=== PATIENT | female | born 1990 | race Caucasian/White ===

== ENCOUNTER 2017-11-27 12:33 | Emergency (ER) | payer BC, MEDICAID ==
[2017-11-27 12:49] VITALS: BP 130/82
--- NOTE | 2017-11-27 13:34 | EDM.PDOC ---
Scribed by Tamika Story 11/27/17 [id number] for Celestine Anne MD ED HPI GENERAL MEDICAL PROBLEM - General Chief Complaint: ENT Problem Stated Complaint: EAR VERY PAINFUL, [id number] Time Seen by Provider: 11/27/17 12:59 Source of Information: Reports: Patient, RN, RN Notes Reviewed History Limitations: Reports: No Limitations - History of Present Illness INITIAL COMMENTS - FREE TEXT/NARRATIVE: Patient presents with complaint of onset of left ear pain yesterday and worse today. Denies drainage, fever, chills or any other symptoms. Onset Date: 11/26/17 Duration: Getting Worse Location: Reports: Other (left ear') Quality: Reports: Ache Severity: Severe Improves with: Reports: None Worsens with: Reports: None Associated Symptoms: Reports: No Other Symptoms Left Ear Pain Score (Numeric/FACES): 8 - Related Data Allergies Allergy/AdvReac Type Severity Reaction Status Date / Time latex Allergy Rash Verified 11/27/17 13:13 Home Meds: Home Meds . 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 (See Below) Other OB/BYN History: iud placement and removal,bv Musculoskeletal History: Reports: None Neurological History: Reports: None Psychiatric History: Reports: Depression Endocrine/Metabolic History: Reports: Diabetes, Gestational Hematologic History: Reports: None Immunologic History: Reports: None Oncologic (Cancer) History: Reports: None Dermatologic History: Reports: None - Infectious Disease History Infectious Disease History: Reports: Chicken Pox, Shingles - Past Surgical History HEENT Surgical History: Reports: Myringotomy w Tube(s), Other (See Below) Social & Family History - Family History Family Medical History: Noncontributory - Tobacco Use Smoking Status *Q: Former Smoker Used Tobacco, but Quit: Yes Month Tobacco Last Used: 2011 Second Hand Smoke Exposure: No - Caffeine Use Caffeine Use: Reports: None - Recreational Drug Use Recreational Drug Use: No ED ROS ENT - Review of Systems Review Of Systems: ROS reveals no pertinent complaints other than HPI. ED EXAM, ENT - Physical Exam Exam: See Below Exam Limited By: No Limitations General Appearance: Alert, WD/WN, No Apparent Distress, Obese Eye Exam: Bilateral Eye: Normal Inspection Ears: Normal External Exam, Hearing Grossly Normal, Other (left TM bulging, erythematous and dull. No perforation. No drainage. Right TM canal normal.) Nose: Normal Inspection, Normal Mucousa, No Blood Mouth/Throat: Normal Inspection, Normal Gums, Normal Lips, Normal Oropharynx, Normal Teeth Head: Atraumatic, Normocephalic Neck: Normal Inspection, Supple, Non-Tender, Full Range of Motion Respiratory/Chest: No Respiratory Distress, Lungs Clear, Normal Breath Sounds, No Accessory Muscle Use, Chest Non-Tender Cardiovascular: Normal Peripheral Pulses, Regular Rate, Rhythm, No Edema, No Gallop, No JVD, No Murmur, No Rub Neurological: Alert, Oriented, CN II-XII Intact, Normal Cognition, Normal Gait, No Motor/Sensory Deficits Psychiatric: Normal Affect, Normal Mood Skin: Warm, Dry, Intact, Normal Color, No Rash Course - Vital Signs Last Recorded V/S: Last Vital Signs Temp 37.2 C 11/27/17 12:48 Pulse 88 11/27/17 12:48 Resp 20 11/27/17 12:48 BP 130/82 11/27/17 12:48 Pulse Ox 97 11/27/17 12:48 Departure - Departure Time of Disposition: 13:28 Disposition: Home, Self-Care 01 Condition: Good Clinical Impression: Otitis media Qualifiers: Otitis media type: suppurative Chronicity: acute Laterality: left Recurrence: not specified as recurrent Spontaneous tympanic membrane rupture: without spontaneous rupture Qualified Code(s): H66.002 - Acute suppurative otitis media without spontaneous rupture of ear drum, left ear - Discharge Information Instructions: Otitis Media, Adult, [id number] Forms: ED Department Discharge Additional Instructions: RX: Augmentin 875mg. Follow up in clinic in 7 to 10 days for ear recheck if not completely improved. I have read and agree with the documentation that has been completed regarding this visit. By signing this record, I attest that the documentation was completed in my physical presence and is an accurate record of the encounter.
== END 2017-11-27 13:34 | disposition home or self-care (01) ==
LOC: DL.ED 12:33
DX: H66.002 Acute suppurative otitis media without spontaneous rupture of ear drum, left ear (principal); Z91.040 Latex allergy status; Z87.891 Personal history of nicotine dependence
CPT/HCPCS: 99283

== ENCOUNTER 2019-08-13 16:03 | Emergency (ER) | payer BC ==
[2019-08-13] MEDS ORDERED: Ciprofloxacin 0.3% Ophth Soln 5 ML Bottle ONE (16:24)
[2019-08-13 16:25] VITALS: BP 123/64; PULSE 90
[2019-08-13] MEDS ORDERED: Amoxicillin/Clavulanate K 875-125 MG Tab PO ONE (16:26)
[2019-08-13] MEDS ORDERED: Acetaminophen/HYDROcodone 325-10 MG Tab PO ONE (16:28)
--- NOTE | 2019-08-13 16:32 | EDM.PDOC ---
Scribed by Tamika Story 08/13/19 8515 for Celestine Anne MD ED HPI GENERAL MEDICAL PROBLEM - General Chief Complaint: ENT Problem Stated Complaint: EAR INFECTION Time Seen by Provider: 08/13/19 16:15 Source of Information: Reports: Patient, RN, RN Notes Reviewed History Limitations: Reports: No Limitations - History of Present Illness INITIAL COMMENTS - FREE TEXT/NARRATIVE: Patient presents to ER with left ear pain. She has had one day duration of severe left ear pain with a small amount of drainage. Reports history of chronic /recurrent left sided ear infection since childhood. When she was a child she put a Q-tip in her left ear and ruptured membrane which required surgical repair. She has not taken any medications for pain because sh eis 14 weeks . Patient states that her current visit is not related to her current . Onset Date: 08/12/19 Duration: Getting Worse Location: Reports: Other (left ear) Quality: Reports: Ache Severity: Severe Improves with: Reports: None Worsens with: Reports: None Associated Symptoms: Reports: No Other Symptoms - Related Data Allergies Allergy/AdvReac Type Severity Reaction Status Date / Time latex Allergy Rash Verified 08/13/19 16:20 Home Meds: Home Meds . 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 STONE AND PLATE PREPARER APPRENTICE History: iud placement and removal,bv Musculoskeletal History: Reports: None Neurological History: Reports: None Psychiatric History: Reports: Depression Endocrine/Metabolic History: Reports: Diabetes, Gestational Hematologic History: Reports: None Immunologic History: Reports: None Oncologic (Cancer) History: Reports: None Dermatologic History: Reports: None - Infectious Disease History Infectious Disease History: Reports: Chicken Pox, Shingles - Past Surgical History HEENT Surgical History: Reports: Myringotomy w Tube(s), Other (See Below) Social & Family History - Family History Family Medical History: Noncontributory - Caffeine Use Caffeine Use: Reports: None - Living Situation & Occupation Living situation: Reports: with Family ED ROS ENT - Review of Systems Review Of Systems: ROS reveals no pertinent complaints other than HPI. ED EXAM, ENT - Physical Exam Exam: See Below Exam Limited By: No Limitations General Appearance: Alert, WD/WN, No Apparent Distress Eye Exam: Bilateral Eye: Normal Inspection Ears: Normal External Exam, Canal Discharge (Left, yellowish drainage), Canal Swelling, Other (Rt TM nl to exam. Left TM partially visualized, and is erythematous.). No: Auricular Erythema, Auricular Tenderness, Mastoid Swelling , Mastoid Tenderness, Canal Blood Nose: Normal Inspection Mouth/Throat: Normal Inspection Head: Atraumatic, Normocephalic Neck: Normal Inspection, Supple, Non-Tender, Full Range of Motion. No: Lymphadenopathy (L), Lymphadenopathy (R) Respiratory/Chest: No Respiratory Distress Neurological: Alert, Oriented, Normal Gait, No Motor/Sensory Deficits Psychiatric: Normal Affect, Normal Mood Skin: Warm, Dry, Intact, Normal Color, No Rash Course - Vital Signs Last Recorded V/S: Last Vital Signs Temp 97.7 F 08/13/19 16:21 Pulse 90 08/13/19 16:21 Resp 16 08/13/19 16:21 BP 123/64 08/13/19 16:21 Pulse Ox 99 08/13/19 16:21 - Orders/Labs/Meds Orders: Active Orders 24 hr Category Date Time Status Acetaminophen/HYDROcodone [Delevan 325-10 MG] Med 08/13/19 16:28 Once 1 tab PO ONETIME ONE Meds: Medications Discontinued Medications Generic Name Dose Route Start Last Admin Trade Name Freq PRN Reason Stop Dose Admin Amoxicillin/Clavulanate Potassium 1 tab 08/13/19 16:26 Augmentin 875 Mg/125 Mg PO 08/13/19 16:27 ONETIME ONE Ciprofloxacin 1 ml 08/13/19 16:24 Ciprofloxacin 0.3% Ophth Soln .XX 08/13/19 16:25 ONETIME ONE Departure - Departure Time of Disposition: 16:29 Disposition: Home, Self-Care 01 Condition: Good Clinical Impression: Otitis externa Qualifiers: Otitis externa type: other infective Chronicity: acute Laterality: left Qualified Code(s): H60.392 - Other infective otitis externa, left ear Otitis media Qualifiers: Otitis media type: suppurative Chronicity: acute Laterality: left Recurrence: not specified as recurrent Spontaneous tympanic membrane rupture: without spontaneous rupture Qualified Code(s): H66.002 - Acute suppurative otitis media without spontaneous rupture of ear drum, left ear - Discharge Information *PRESCRIPTION DRUG MONITORING PROGRAM REVIEWED*: No *COPY OF PRESCRIPTION DRUG MONITORING REPORT IN PATIENT ALICIA: No Instructions: Otitis Media, Adult, Cayc-[id number], Otitis Externa, [id number] Forms: ED Department Discharge Additional Instructions: Rx: Augmentin 875mg Ciprofloxacin Ophth. Solution 0.3% Place 4 to 5 drops in left ear canal 4 times a day for five days. Follow up in clinic for recheck if not improving as expected. - My Orders Last 24 Hours: My Active Orders 08/13/19 16:28 Acetaminophen/HYDROcodone [Delevan 325-10 MG] 1 tab PO ONETIME ONE - Assessment/Plan Last 24 Hours: My Active Orders 08/13/19 16:28 Acetaminophen/HYDROcodone [Delevan 325-10 MG] 1 tab PO ONETIME ONE I have read and agree with the documentation that has been completed regarding this visit. By signing this record, I attest that the documentation was completed in my physical presence and is an accurate record of the encounter.
== END 2019-08-13 16:49 | disposition home or self-care (01) ==
LOC: DL.ED 16:03
DX: O99.89 Other specified diseases and conditions complicating pregnancy, childbirth and the puerperium (principal); H60.392 Other infective otitis externa, left ear; O24.419 Gestational diabetes mellitus in pregnancy, unspecified control; Z91.040 Latex allergy status; Z3A.14 14 weeks gestation of pregnancy
CPT/HCPCS: 99282; A9270

== ENCOUNTER 2020-01-30 07:57 | Inpatient (IN) | payer BC, SELFPAY ==
[~2020-01-30 07:57] MED LIST: Acetaminophen 325 MG Tab PO PRN; Carboprost Tromethamine 250 MCG/1 ML Amp IM PRN; Lactated Ringers 1,000 ML IV ONE; Lidocaine 1% 30 ML SDV INJECT PRN; Methylergonovine 0.2 MG/1 ML Amp IM PRN; Misoprostol 400 MCG (4 X 100 MCG TAB) RECTAL PRN; Ondansetron 4 MG/2 ML SDV IVPUSH PRN; Oxytocin/Normal Saline 30 UNIT/500 ML BAG IV SCH; Sodium Chloride 0.9% 10 ML Syringe FLUSH PRN; Tranexamic Acid 1,000 MG in Sodium Chloride 0.9% 100 ML IV PRN
--- NOTE | 2020-01-30 09:39 | OBOUT ---
DATE: 01/30/2020 TIME: 8:15 to 8:23. REASON FOR NST: 1. Intrauterine at 39 weeks, confirmed with 8 and 6/7 weeks ultrasound. 2. Gestational diabetes mellitus, controlled on insulin. 3. GBS negative. 4. Rh negative. Received RhoGAM appropriately. 5. History of subchorionic hemorrhage in the 1st trimester - resolved. 6. G5, P4-0-0-4. NST INTERPRETATION: During this time period, heart tone baseline is approximately 125, and there are at least two 15 x 15 beats per minute accelerations making this strip reactive. It is also noted to be reassuring. Tocometer reveals irritability. No obvious contractions, none felt by the patient. Blood pressure 138/81 prior. ASSESSMENT: 1. Nonstress test, reactive and reassuring. 2. Tocometer without contractions. PLAN: Evaluation did reveal her to be 4 to 5 cm, 70% effaced, -1 station, vertex suspected, and artificial rupture of membranes done after discussion with the patient yielding copious amounts of clear fluid. Please see admit history and physical done through [facility] and updated today with review of systems fully reviewed and felt to be noncontributory other than as noted. Records were called for, reviewed, and supplemented by the patient's history in regard to this as well. [facility] /[id number]
[2020-01-30] MEDS: Oxytocin/Normal Saline 30 UNIT/500 ML BAG IV SCH ×2 (11:37→16:48)
[2020-01-30] MEDS: Lactated Ringers 1,000 ML IV SCH ×2 (11:37→18:10)
[2020-01-30] MEDS ORDERED: Sodium Chloride 0.9% 10 ML Syringe FLUSH PRN (15:14)
[2020-01-30] MEDS ORDERED: Simethicone 80 MG Tab.Chew PO PRN (15:14)
[2020-01-30] MEDS ORDERED: Docusate Sodium 100 MG Cap PO PRN (15:14)
[2020-01-30] MEDS ORDERED: Benzocaine/Menthol 20%-0.5% Spray 56 GM Canister TOP PRN (15:14)
[2020-01-30] MEDS ORDERED: Zolpidem 5 MG Tab PO PRN (15:14)
[2020-01-30] MEDS ORDERED: Oxytocin 10 Units/1 ML SDV IM PRN (15:14)
[2020-01-30] MEDS ORDERED: Ibuprofen 800 MG Tab PO PRN (15:14)
[2020-01-30] MEDS: Ferrous Sulfate 325 MG Tab PO SCH (18:34)
[2020-01-30] MEDS ORDERED: fentaNYL 100 MCG/2 ML SDV IVPUSH STA (19:04)
[2020-01-30 21:07] VITALS: PULSE 61
[2020-01-31 08:36] VITALS: BP 112/67
[2020-01-31] MEDS: Ferrous Sulfate 325 MG Tab PO SCH (08:41)
[2020-01-31] MEDS ORDERED: Prenatal Multivitamin with Calcium/Folic Acid/Iron Tab PO SCH (09:00)
--- NOTE | 2020-01-31 10:11 | DEL ---
DATE: 01/30/2020 PREOPERATIVE DIAGNOSES: 1. Intrauterine at 39 weeks, confirmed with 8 and 6/7 weeks ultrasound. 2. Gestational diabetes mellitus, controlled on insulin. 3. Group B Streptococcus negative. 4. Rh negative. Received RhoGAM appropriately earlier in the . 5. History of subchorionic hemorrhage in the 1st trimester - resolved. 6. Gestational thrombocytopenia, platelets of 130,000 upon admit. 7. G5, P4-0-0-4. POSTOPERATIVE DIAGNOSES: 1. Intrauterine at 39 weeks, confirmed with 8 and 6/7 weeks ultrasound - delivered. 2. Gestational diabetes mellitus, controlled on insulin. 3. Group B Streptococcus negative. 4. Rh negative. Received RhoGAM appropriately earlier in the . 5. History of subchorionic hemorrhage in the 1st trimester - resolved. 6. Gestational thrombocytopenia, platelets of 130,000 upon admit. 7. G5, P4-0-0-4. PROCEDURE PERFORMED: NST, artificial rupture of membranes, Pitocin augmentation and spontaneous vaginal delivery on 01/30/[address] Servin. ANESTHESIA/ANALGESIA: The patient did receive Nitrox in the late 1st stage and 2nd stage of labor. ESTIMATED BLOOD LOSS: 200 mL. FINDINGS: Female, score and weight pending. SUMMARY OF EVENTS: The patient is a 29-year-old, G5, P4-0-0-4, intrauterine at 39 weeks, confirmed with 8 and 6/7 weeks ultrasound who was admitted for induction of labor with gestational diabetes mellitus, controlled on insulin at 39+ weeks. She had a ripening cervix being 4+ cm upon admission. Underwent NST, followed by artificial rupture of membranes and as active labor did not pursue thereafter with contraction, Pitocin augmentation was started. She maxed out at 4 milliunits per minute. Subsequently, she progressed into labor after Pitocin was given and rapidly dilated from 7 cm to complete in less than a half hour. I was called to the room, donned sterile gown and gloves when the patient pushing with contractions, when she was found to be complete, vertex was delivered in a JOAN presentation followed by anterior and posterior shoulder as well as rest of the infant without difficulty. Mouth and nares were suctioned. Cord was doubly clamped and cut. Infant was resuscitated on mother's abdomen. Approximately 10 mL of cord blood was obtained for labs. Placenta was then delivered with gentle cord traction and fundal massage within 5 to 10 minutes. Perineum, vagina, and perirectal areas were then examined without any tears or lacerations. Mother and infant are currently stable at the time of dictation. [facility] /[id number]
--- NOTE | 2020-01-31 10:17 | PN ---
DATE: 01/30/2020 SUBJECTIVE: The patient notes some increasing cramping with bleeding. OBJECTIVE: Nurses note increased bleeding with some clots. EBL of about 1000 mL at current time from delivery. She did eat at approximately 1700 hours. Pad was just changed and minimal flow was noted. Interventions include Methergine 0.2 mg IM x1 as well as TXA 1 g IV given initially and firm uterus is noted around -1 below the umbilicus. Vital signs have been stable, and the patient is currently asymptomatic. She denies any chest pain, shortness of breath, or lightheadedness. Glucose was 160, but that was within 1 hour of her eating. ASSESSMENT AND PLAN: 1. hemorrhage, possibly related to atony with improvement with medications at this point in time. I did discuss with the patient there may be a potential for doing a bimanual exam with finger uterine curettage to further evaluate if bleeding increases. At current time of dictation, pad was changed approximately 20 minutes ago and bleeding has significantly decreased. Therefore, we will continue to follow clinically and closely. In addition, we will make her n.p.o. at this point in time. Re-evaluate serially. If bleeding increases significantly, symptoms develop, vital signs are not stable, or continues, will need to be re-evaluated and consider bimanual exam with finger uterine curettage. NON DESTRUCTIVE TESTING SCIENTIST was called in regard to this, and with recent oral intake, we will continue to follow clinically and closely at this point in time as bleeding has slowed down. Plans were discussed with nurse, they understand and agree as well, and will call with any concerns. 2. day #0 status post spontaneous vaginal delivery. 3. Gestational thrombocytopenia, platelets 130,000. We will draw a CBC now and then type and screen in potential for anticipation if there are concerns. We will start those labs now and follow clinically and closely thereafter. [facility] /[id number]
--- NOTE | 2020-02-01 08:19 | DISCH ---
ADMITTING DIAGNOSES: 1. Intrauterine at 39 weeks, confirmed with 8 and 6/7 weeks ultrasound. 2. Gestational diabetes mellitus, controlled on insulin. 3. GBS negative. 4. Rh negative. Received RhoGAM appropriately and received RhoGAM as baby was blood type O positive. 5. History of subchorionic hemorrhage in the 1st trimester - resolved. 6. Gestational thrombocytopenia. 7. G5, P4-0-0-4. DISCHARGE DIAGNOSES: 1. Intrauterine at 39 weeks, confirmed with 8 and 6/7 weeks ultrasound. 2. Gestational diabetes mellitus, controlled on insulin. 3. GBS negative. 4. Rh negative. Received RhoGAM appropriately and received RhoGAM as baby was blood type O positive. 5. History of subchorionic hemorrhage in the 1st trimester - resolved. 6. Gestational thrombocytopenia. 7. G5, P4-0-0-4. 8. hemorrhage with an EBL of 1000 mL that occurred hours after delivery with suspected retained placental membranes versus uterine atony resolved with TXA treatment and methargen. PROCEDURES PERFORMED: NST, artificial rupture of membranes, Pitocin augmentation, and spontaneous vaginal delivery on 01/30/[address] Servin. HISTORY OF PRESENT ILLNESS: Please see H and P. SUMMARY OF HOSPITAL COURSE: The patient was admitted on the above date with the above diagnoses, had gestational diabetes mellitus that was controlled on insulin, she was 39 weeks, and underwent the above procedures for induction of labor. When she was initially evaluated, she was found to have dilation of 4+ cm, underwent NST, artificial rupture of membranes, then required some Pitocin augmentation. Then went on to have spontaneous vaginal delivery yielding a female with score of 8 and 9, weighing 3535 g (7 pounds 13 ounces). Hours after delivery, she did have continued increased bleeding. I was called in, in regard to this. She was given a dose of methargen as well as TXA. This did slow down her bleeding but then increased and I was called to re-evaluate the patient. Please see dictation in regard to this. The patient was followed closely thereafter and bleeding significantly decreased thereafter. Therefore, the patient was followed closely. DISCHARGE LABORATORY DATA: In terms of her bleeding, white cell count 10.5, hemoglobin 12.9 compared to predelivery hemoglobin of 14, and platelets 128,000 compared to predelivery platelets of 130,000. DISCHARGE EVALUATION: The patient was tolerating p.o., ambulating, urinating, passing flatus, and requesting discharge. Last Set of Vitals: Updated and listed in chart. Heart rate 61, blood pressure 118/70, respiratory rate 18. Lungs: Clear to auscultation bilaterally. Heart: S1 and S2. Regular rate and rhythm. Genitourinary: Firm uterus -1 below umbilicus. Extremities: No peripheral edema. No calf pain. CONDITION ON DISCHARGE COMPARED TO CONDITION ON ADMISSION: Improved. INSTRUCTIONS: 1. Diet as tolerated. 2. Activity: No lifting more than 20 pounds. No sit-ups, straining, and pelvic rest for next 6 weeks with immediate return to fertility discussed with the patient. 3. Reasons to return or go to the emergency room were discussed with the patient in detail, including, but not limited to, temperature greater than 100.4, foul-smelling discharge, red hot tender breasts, or increased vaginal bleeding. DISCHARGE MEDICATIONS: [id number] Tylenol or ibuprofen for pain, vitamins while breast feeding. FOLLOWUP: 6 weeks . I did discuss with the patient in the interim reasons to return or go to emergency room in regard to infant and an appointment will be made for 02/02/2020 for re-evaluation. [facility] /[id number]
== END 2020-01-31 16:45 | disposition home or self-care (01) | DRG 560 ==
LOC: DL.OB 07:57 → OBSVTOIN 15:20 → DL.OB 15:20
PROVIDERS: ADMIT Family Medicine; ATTEND Family Medicine
PROC: 10E0XZZ Delivery of Products of Conception, External Approach (ICD-10-PCS; principal; 2020-01-30)
PROC: 10907ZC Drainage of Amniotic Fluid, Therapeutic from Products of Conception, Via Natural or Artificial Opening (ICD-10-PCS; 2020-01-30)
DX: O24.424 Gestational diabetes mellitus in childbirth, insulin controlled (principal); O99.12 Other diseases of the blood and blood-forming organs and certain disorders involving the immune mechanism complicating childbirth; J45.20 Mild intermittent asthma, uncomplicated; O99.52 Diseases of the respiratory system complicating childbirth; O72.1 Other immediate postpartum hemorrhage; Z3A.39 39 weeks gestation of pregnancy; Z37.0 Single live birth; Z91.040 Latex allergy status; Z79.51 Long term (current) use of inhaled steroids; Z79.899 Other long term (current) drug therapy
CPT/HCPCS: 36415; 59409; 82962; 85027; 85461; 86850; 86870; 86900; 86901; A9270-GY; J2210; J2405; J2590; J2790; J3010; J7050; J7120

== ENCOUNTER 2020-01-31 18:22 | Emergency (ER) | payer BC ==
--- NOTE | 2020-01-31 19:02 | EDM.PDOC ---
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 noted purplish bubble type "something. Denies heavy bleeding or severe cramping - Related Data Allergies Allergy/AdvReac Type Severity Reaction Status Date / Time latex Allergy Rash Verified 01/31/20 18:40 Home Meds: Home Meds Insulin Detemir [Levemir] 11 unit SUBCUT DAILY 12/11/19 [History] #103/Iron Fumarate/Fa [ ] 1 tab PO DAILY 12/11/19 [ History] Ferrous Sulfate [Iron] 325 mg PO DAILY 01/31/20 [History] Past Medical History HEENT History: Reports: Otitis Media, Other (See Below) Other HEENT History: glasses Cardiovascular History: Reports: None Respiratory History: Reports: Asthma, Other (See Below) Other Respiratory History: RAD Gastrointestinal History: Reports: Other (See Below) Other Gastrointestinal History: chronic cholecystitis Genitourinary History: Reports: None 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 Given Txa and methergine Musculoskeletal History: Reports: None Neurological History: Reports: None Psychiatric History: Reports: Depression Endocrine/Metabolic History: Reports: Diabetes, Gestational Hematologic History: Reports: None Immunologic History: Reports: None Oncologic (Cancer) History: Reports: None Dermatologic History: Reports: None - Infectious Disease History Infectious Disease History: Reports: Chicken Pox, Shingles - Past Surgical History Head Surgeries/Procedures: Reports: None HEENT Surgical History: Reports: Myringotomy w Tube(s) Social & Family History - Family History Family Medical History: Noncontributory - Tobacco Use Smoking Status *Q: Never Smoker Second Hand Smoke Exposure: No - Caffeine Use Caffeine Use: Reports: None - Recreational Drug Use Recreational Drug Use: No - Living Situation & Occupation Living situation: Reports: with Family ED ROS GENERAL - Review of Systems Review Of Systems: Comprehensive ROS is negative, except as noted in HPI. ED EXAM, RENAL/ - Physical Exam Exam: See Below Exam Limited By: No Limitations General Appearance: Alert, No Apparent Distress Throat/Mouth: Normal Inspection Cardiovascular: Normal Peripheral Pulses, Regular Rate, Rhythm GI/Abdominal: Soft (Female) Exam: Normal External Exam, Vaginal Discharge (small amount dark blood no clots. cervix not visualized fundus -1 firm. ), Other (superficial scratch right upper labia, , vaginal muro flaccid, greater anterior) Course - Vital Signs Last Recorded V/S: Last Vital Signs Temp 98.1 F 01/31/20 21:00 Pulse 69 01/31/20 21:00 Resp 18 01/31/20 21:00 BP 123/79 01/31/20 21:00 Pulse Ox 97 01/31/20 18:27 - Orders/Labs/Meds Orders: Active Orders 24 hr Category Date Time Status Nitrous Oxide Delivery [RC] ASDIRECTED Care 01/31/20 20:09 Active OB Discontinue Nitrous Oxide [RC] ASDIRECTED Care 01/31/20 20:09 Active Ready for Discharge [RC] PER UNIT ROUTINE Care 01/31/20 21:13 Active Labs: Laboratory Tests 01/31/20 01/31/20 Range/Units 19:37 19:37 WBC 9.7 (5.0-10.0) 10^3/uL RBC 4.65 (4.2-5.4) 10^6/uL Hgb 14.0 (12.0-16.0) g/dL Hct 38.9 (37.0-47.0) % MCV 83.7 (80-100) fL MCH 30.1 (27.0-34.0) pg MCHC 36.0 H (33.0-35.0) g/dL Plt Count 142 L (150-450) 10^3/uL Neut % (Auto) 70.9 (42.2-75.2) % Lymph % (Auto) 19.3 L (20.5-50.1) % Hand % (Auto) 8.4 H (2-8) % Eos % (Auto) 1.1 (1.0-3.0) % Baso % (Auto) 0.3 (0.0-1.0) % Sodium 140 (136-145) mmol/L Potassium 3.7 (3.5-5.1) mmol/L Chloride 106 (98-107) mmol/L Carbon Dioxide 26 (21-32) mmol/L Anion Gap 11.7 (7-13) mEq/L BUN 9 (7-18) mg/dL Creatinine 0.66 (0.55-1.02) mg/dL Est Cr Clr Drug Dosing 115.62 mL/min Estimated GFR (MDRD) > 60 Glucose 138 H (74-99) mg/dL Calcium 8.3 L (8.5-10.1) mg/dL Meds: Medications Discontinued Medications Generic Name Dose Route Start Last Admin Trade Name Long PRN Reason Stop Dose Admin Fentanyl 50 mcg 01/31/20 20:35 01/31/20 21:03 Sublimaze IVPUSH 01/31/20 20:36 50 mcg ONETIME ONE Administration Cefazolin Sodium/Dextrose 1 gm 50 mls @ 100 mls/hr 01/31/20 20:18 01/31/20 20 :22 / Premix IV 01/31/20 20:47 100 mls/hr ONETIME ONE Administration Methylergonovine Maleate 0.2 mg 01/31/20 20:23 01/31/20 20:33 Methergine PO 01/31/20 20:24 0.2 mg ONETIME ONE Administration - Re-Assessments/Exams Free Text/Narrative Re-Assessment/Exam: 01/31/20 19:03 Awaiting call back from primary OB Dr Servin 01/31/20 19:[address] Damon, Request lab and US and will see patient. Patient to OB unit and Dr Damon will see there. Please see her note. Departure - Departure Time of Disposition: 21:54 Disposition: Home, Self-Care 01 Condition: Good Clinical Impression: Pelvic pressure in female bleeding Qualifiers: hemorrhage type: unspecified Qualified Code(s): O72.1 - Other immediate hemorrhage - Discharge Information Instructions: Pelvic Pain, Female, Pain Medicine Instructions, [id number] Referrals: Bartolo Servin MD [Primary Care Provider] - Forms: ED Department Discharge Additional Instructions: the direct line for labor and delivery is [phone]. If your bleeding picks up or you notice more clots filling a large pad in an hour or less. continue to take your pain medications as directed. Sepsis Event Note - Evaluation Sepsis Screening Result: No Definite Risk - Focused Exam Date Exam was Performed: 02/01/20 Time Exam was Performed: 14:48
[2020-01-31 19:57] LABS: ANION GAP 11.7 mEq/L (7-13); CHLORIDE,CL 106 mmol/L (98-107); SODIUM,NA 140 mmol/L (136-145)
[2020-01-31] MEDS ORDERED: ceFAZolin 1 GM in Premix Bag 1 BAG IV ONE (20:18)
[2020-01-31] MEDS ORDERED: Methylergonovine 0.2 MG Tab PO ONE (20:23)
[2020-01-31] MEDS ORDERED: fentaNYL 100 MCG/2 ML SDV IVPUSH ONE (20:35)
[2020-01-31 21:52] VITALS: BP 123/79; PULSE 69
--- NOTE | 2020-01-31 23:30 | CONS ---
SERVICE DATE: 01/31/2020 Consult for emergency room provider, Jaymie Walters. REASON FOR CONSULT: vaginal symptoms with history of hemorrhage and possible retained placenta or clot. FINDINGS: Natalia is a 29-year-old white female, G5, now P5, who delivered yesterday by induced vaginal delivery at 1520 a viable female infant, weighing 7 pounds 13 ounces/3535 g with scores of 8 and 9 at 1 and 5 minutes respectively. The patient was induced by Dr. Servin for insulin-dependent gestational diabetes. She is Rh negative with a blood type of A negative, rubella immune, and had known gestational thrombocytopenia. The patient had a hemorrhage of over 1000 mL following her delivery and required TXA, Methergine, and close monitoring. They did do type and screen, but she did not need a transfusion. Her bleeding slowed with bimanual exam and the medication intervention. Her serial hemoglobins were 14.0 on admit, 14.7 on recheck, and 12.9 prior to discharge. Serial platelet counts were 130, 138, and 128. Mother is A negative blood type, as noted, received RhoGAM during her . Cord blood was O positive and she did receive RhoGAM. The patient was breast-feeding and doing some supplementation with a bottle. She requested early discharge home today at [address] Servin did discharge her home today. Tonight, she felt something in the vaginal area that felt like pressure and something was possibly hanging out the vagina. Had her look with a flashlight and he saw something that was dark purple hanging at the introitus. They subsequently talked to the OB and were instructed to come in for evaluation. She was having some bleeding, but felt it was likely normal flow. Tiny blood clots only. Cramping seemed within normal limits for and was noted with nursing. She has had no fever or foul odor from the vagina or other problems. Eating and not having nausea or vomiting. On arrival, she was seen in the emergency room and the ER provider did a brief evaluation, then requested that I come in for consultation and evaluation. I did request that ultrasound be present to take a look up in the fundus of the uterus and rule out retained products of conception with her history. Also, requested CBC. PHYSICAL EXAMINATION: GENERAL: The patient looks well and is in no acute distress. She answers questions appropriately as does her . VITAL SIGNS: Stable. She is afebrile. Temp is 97.8, pulse 79 and regular, blood pressure 129/85, respiratory rate 18, O2 sat 97. HEENT: Grossly negative. LUNGS: She is in no respiratory distress. HEART: Rate is regular. ABDOMEN: Soft, benign. Her fundus is just below the umbilicus and is firm. Nontender. : External genitalia appear within normal limits for . There were no lacerations and no stitches. Examination with a large speculum, I can see the anterior lip of the cervix. It is easily visualized and does not appear to be markedly edematous or bruised. The cervix can be seen in its entirety and is involuting. There is some mild serous bloody flow from the cervix. Just inside the cervix is some dark blood clot and this is removed with ring forceps. A bimanual exam confirms uterus to be firm, nontender, freely mobile with no palpable adnexal masses or tenderness that appear worrisome. Her exam feels like normal examination. IMAGING: Ultrasound was done in my presence. The endometrial lining is 15 or less millimeters. She does have some hemorrhagic or clot type findings around the cervix and in the vaginal area which would be consistent with a uterus. Official ultrasound reading shows an impression that is felt to be consistent with early state and no acute complications were appreciated. uterus and hemorrhagic components within the endometrium and endocervical canal as expected. Follow up only if clinically warranted. This is certainly consistent with her clinical impression at this time. LABORATORY DATA: Her lab work is reassuring, shows a white count of 9.7, platelet count 142, hemoglobin 14.0. Chemistry panel, nonfasting glucose 138, calcium 8.3, and is otherwise completely within normal limits. IMPRESSION: 1. Concern regarding a vaginal retained mass which is felt to be likely clotted blood just inside the cervix. This has now been removed by ring forceps and a small non sharp curette. 2. hemorrhage, stabilized with hemoglobin now 14.0. 3. Gestational thrombocytopenia, resolving with current platelet count 142. 4. Insulin-dependent gestational diabetes, resolving with current random glucose 138. 5. A 29-year-old white female G5, now P5, day #1. PLAN: The patient would like to be discharged home tonight if medically acceptable. They do live in town close to the hospital and are medically reliable. Therefore, this would be an acceptable option. They will call or return if she has fever, pain, increased bleeding, or other problems. Due to her intrauterine manipulation, both following delivery and tonight, we will give her 1 g of Ancef IV since she has an IV in place and a prescription for cephalexin 500 t.i.d. x5 days will be sent to clinic pharmacy through the [facility]. Due to slightly boggy lower uterine segment and cervix which appears to be the area that has the blood clot, we will go ahead and give her Methergine p.o. 0.2 mg q.i.d. for the next 3 days to keep that area tight and prevent further problems. I did not want to scrape that completely off that area due to her history of hemorrhage and low platelets. All of her questions were answered. She will continue with her ibuprofen at home as needed for discomfort and cramping. We did give her a small dose of fentanyl here for cramping and pain. She did receive some Toradol earlier during her hospitalization for cramping and I did not repeat it, as I would like her to be able to use her ibuprofen and Aleve at home. Further management pending her clinical course and all of their questions were answered and they appear happy with her care and plan today. [facility] /[id number]
== END 2020-01-31 21:45 | disposition home or self-care (01) ==
LOC: DL.ED 18:22
DX: O72.2 Delayed and secondary postpartum hemorrhage (principal); Z91.040 Latex allergy status; Z79.4 Long term (current) use of insulin
CPT/HCPCS: 36415; 76856; 80048; 85025; 96365; 96375; 99284-25; A9270-GY; J0690; J3010

== ENCOUNTER 2022-10-01 15:02 | Observation (INO) | payer OTHER ==
[2022-10-01] MEDS ORDERED: Lactated Ringers 1,000 ML IV ONE ×2 (16:10→17:37)
[2022-10-01] MEDS ORDERED: Acetaminophen 325 MG Tab PO ONE (16:42)
[2022-10-01] MEDS ORDERED: Acetaminophen 325 MG Tab ONE (16:44)
[2022-10-01] MEDS ORDERED: cefTRIAXone 1 GM in Sodium Chloride 0.9% 50 ML IV ONE (17:20)
[2022-10-01] MEDS: Morphine 2 MG/ML SYRINGE IVPUSH PRN ×2 (17:50→20:52)
[2022-10-01 18:14] LABS: ANION GAP 16.7 mEq/L (7-13); CHLORIDE,CL 102 mmol/L (98-107); SODIUM,NA 135 mmol/L (136-145)
[2022-10-01 18:22] LABS: ESTIMATED GFR 123 mL/min (>=60)
[2022-10-01] MEDS: Lactated Ringers 1,000 ML IV SCH (18:45)
[2022-10-01] MEDS ORDERED: Betamethasone Acetate/Betamethasone Sod Phosphate 30 MG/5 ML MDV IM ONE (19:25)
[2022-10-01] MEDS ORDERED: hydrOXYzine HCl 25 MG Tab PO PRN (22:01)
[2022-10-01] MEDS ORDERED: Acetaminophen 325 MG Tab PO PRN (22:05)
[2022-10-02] MEDS: Lactated Ringers 1,000 ML IV SCH ×4 (00:14→17:58)
[2022-10-02] MEDS ORDERED: cefTRIAXone 1 GM Vial ONE (05:37)
[2022-10-02] MEDS ORDERED: Sodium Chloride 0.9% 50 ML ONE ×2 (05:38→17:40)
[2022-10-02] MEDS: cefTRIAXone 1 GM in Sodium Chloride 0.9% 50 ML IV SCH ×3 (05:48→17:45)
[2022-10-02] MEDS ORDERED: Betamethasone Acetate/Betamethasone Sod Phosphate 30 MG/5 ML MDV IM ONE (20:00)
[2022-10-03] MEDS: cefTRIAXone 1 GM in Sodium Chloride 0.9% 50 ML IV SCH (05:40)
[2022-10-03 08:58] VITALS: BP 127/72; PULSE 100
== END 2022-10-03 09:45 | disposition home or self-care (01) ==
LOC: DL.OBCHECK 15:02 → DL.MS 20:26
PROVIDERS: ADMIT Family Medicine; ATTEND Family Medicine
DX: O47.03 False labor before 37 completed weeks of gestation, third trimester (principal); O24.913 Unspecified diabetes mellitus in pregnancy, third trimester; O99.343 Other mental disorders complicating pregnancy, third trimester; F41.9 Anxiety disorder, unspecified; F32.A Depression, unspecified; O99.513 Diseases of the respiratory system complicating pregnancy, third trimester; J45.909 Unspecified asthma, uncomplicated; O99.891 Other specified diseases and conditions complicating pregnancy; N13.30 Unspecified hydronephrosis; Z3A.33 33 weeks gestation of pregnancy; Z98.890 Other specified postprocedural states; Z87.891 Personal history of nicotine dependence
CPT/HCPCS: 36415; 59025; 76775; 76817; 80053; 81001; 82731; 85025; 87081; 87086; 87210; 96361; 96365; 96372; 96375; 96376; A9270; G0378; J0696; J0702; J2270; J7120

== ENCOUNTER 2022-10-24 00:08 | Inpatient (IN) | payer OTHER ==
[2022-10-24] MEDS ORDERED: Sodium Chloride 0.9% 10 ML Syringe FLUSH PRN (00:14)
[2022-10-24] MEDS ORDERED: Misoprostol 25 MCG (1/4 of 100 MCG) Tab VAG PRN (00:14)
[2022-10-24] MEDS ORDERED: Acetaminophen 325 MG Tab PO PRN (00:14)
[2022-10-24] MEDS ORDERED: Lactated Ringers 1,000 ML IV SCH (00:15)
[2022-10-24] MEDS ORDERED: Misoprostol 400 MCG (4 X 100 MCG TAB) RECTAL PRN (00:16)
[2022-10-24] MEDS ORDERED: Nalbuphine 20 MG/1 ML Amp IM PRN (00:16)
[2022-10-24] MEDS ORDERED: Methylergonovine 0.2 MG/1 ML Amp IM PRN (00:16)
[2022-10-24] MEDS ORDERED: fentaNYL 100 MCG/2 ML SDV IVPUSH PRN (00:16)
[2022-10-24] MEDS ORDERED: Lidocaine 1% 10 ML MDV INJECT PRN (00:16)
[2022-10-24] MEDS ORDERED: Carboprost Tromethamine 250 MCG/1 ML Amp IM PRN (00:16)
[2022-10-24] MEDS ORDERED: Ondansetron 4 MG/2 ML SDV IVPUSH PRN (00:16)
[2022-10-24] MEDS: Lactated Ringers 1,000 ML IV SCH ×3 (06:35→17:11)
[2022-10-24] MEDS ORDERED: Benzocaine/Cetylpyridinium/Menthol Lozenge ONE (11:24)
[2022-10-24] MEDS: Oxytocin/Normal Saline 30 UNIT/500 ML BAG IV SCH ×2 (12:20→20:36)
[2022-10-24] MEDS: Benzocaine/Cetylpyridinium/Menthol Lozenge MUCMEM PRN (13:20)
[2022-10-24] MEDS ORDERED: Oxytocin 10 Units/1 ML SDV IM PRN (18:47)
[2022-10-24] MEDS ORDERED: Simethicone 80 MG Tab.Chew PO PRN (18:47)
[2022-10-24] MEDS ORDERED: Benzocaine/Menthol 20%-0.5% Spray 78 GM Cannister TOP PRN (18:47)
[2022-10-24] MEDS ORDERED: Tranexamic Acid 1,000 MG in Sodium Chloride 0.9% 100 ML IV ONE (19:40)
[2022-10-24] MEDS: Sodium Chloride 0.9% 10 ML Syringe FLUSH SCH ×2 (19:40→21:48)
[2022-10-24] MEDS: Acetaminophen 325 MG Tab PO PRN (22:14)
[2022-10-25] MEDS: Ibuprofen 800 MG Tab PO PRN ×3 (02:02→19:45)
[2022-10-25] MEDS: Docusate Sodium 100 MG Cap PO PRN ×2 (08:32→19:45)
[2022-10-25] MEDS: Prenatal Multivitamin with Calcium/Folic Acid/Iron Tab PO SCH (08:32)
[2022-10-25] MEDS: Benzocaine/Cetylpyridinium/Menthol Lozenge MUCMEM PRN ×2 (08:38→19:45)
[2022-10-25] MEDS: guaiFENesin 100 MG/5 ML Soln 5 ML UD Cup PO PRN ×2 (11:24→19:51)
[2022-10-25] MEDS: Sodium Chloride 0.9% 10 ML Syringe FLUSH SCH ×2 (11:40→22:53)
[2022-10-26] MEDS: Acetaminophen 325 MG Tab PO PRN ×2 (01:26→08:48)
[2022-10-26] MEDS: Ibuprofen 800 MG Tab PO PRN ×2 (03:25→11:29)
[2022-10-26] MEDS: guaiFENesin 100 MG/5 ML Soln 5 ML UD Cup PO PRN ×2 (03:30→11:29)
[2022-10-26] MEDS: Prenatal Multivitamin with Calcium/Folic Acid/Iron Tab PO SCH (08:49)
[2022-10-26] MEDS: Docusate Sodium 100 MG Cap PO PRN (08:49)
[2022-10-26 09:47] VITALS: BP 122/75; PULSE 92
[2022-10-26] MEDS ORDERED: Morphine PF 10 MG/10 ML SDV IT ONE (11:33)
== END 2022-10-26 15:50 | disposition home or self-care (01) | DRG 806 ==
LOC: DL.OB 06:06 → OBSVTOIN 18:20
PROVIDERS: ADMIT Family Medicine; ATTEND Family Medicine
PROC: 10E0XZZ Delivery of Products of Conception, External Approach (ICD-10-PCS; principal; 2022-10-24)
PROC: 10907ZC Drainage of Amniotic Fluid, Therapeutic from Products of Conception, Via Natural or Artificial Opening (ICD-10-PCS; 2022-10-24)
PROC: 3E0P7VZ Introduction of Hormone into Female Reproductive, Via Natural or Artificial Opening (ICD-10-PCS; 2022-10-24)
PROC: 3E033VJ Introduction of Other Hormone into Peripheral Vein, Percutaneous Approach (ICD-10-PCS; 2022-10-24)
PROC: 00HU33Z Insertion of Infusion Device into Spinal Canal, Percutaneous Approach (ICD-10-PCS; 2022-10-24)
PROC: 3E0R3BZ Introduction of Anesthetic Agent into Spinal Canal, Percutaneous Approach (ICD-10-PCS; 2022-10-24)
DX: O24.12 Pre-existing type 2 diabetes mellitus, in childbirth (principal); O99.12 Other diseases of the blood and blood-forming organs and certain disorders involving the immune mechanism complicating childbirth; Z37.0 Single live birth; O99.354 Diseases of the nervous system complicating childbirth; D69.6 Thrombocytopenia, unspecified; Z3A.37 37 weeks gestation of pregnancy; O99.02 Anemia complicating childbirth; D64.9 Anemia, unspecified; Z91.040 Latex allergy status; Z79.84 Long term (current) use of oral hypoglycemic drugs; O99.52 Diseases of the respiratory system complicating childbirth; G43.909 Migraine, unspecified, not intractable, without status migrainosus; J45.909 Unspecified asthma, uncomplicated; Z20.822 Contact with and (suspected) exposure to COVID-19
CPT/HCPCS: 36415; 51701; 59409; 59414; 62320; 82947; 85027; 85461; 86850; 86870; 86900; 86901; A9270-GY; J2270; J2405; J2590; J2790; J7120; U0002

== ENCOUNTER 2024-05-05 16:46 | Emergency (ER) | payer OTHER ==
[2024-05-05 17:40] VITALS: BP 123/90; PULSE 89
[2024-05-05 18:05] LABS: BASOPHILS PERCENT AUTO 0.6 % (0.0-1.0); HEMATOCRIT 41.6 % (37.0-47.0); HEMOGLOBIN 14.5 g/dL (12.0-16.0); LYMPHOCYTES PERCENT AUTO 25.7 % (20.5-50.1); MEAN CORPUSCULAR HEMOGLOBIN 28.6 pg (27.0-34.0); MEAN CORPUSCULAR HGB CONC 34.9 g/dL (33.0-35.0); MEAN CORPUSCULAR VOLUME 82.1 fL (80-100); MONOCYTES PERCENT AUTO 9.4 % (2-8); NEUTROPHILS PERCENT AUTO 62.3 % (42.2-75.2); PLATELET COUNT,PLT 199 10^3/uL (150-450); RED BLOOD CELL COUNT 5.07 10^6/uL (4.2-5.4); WHITE BLOOD CELL COUNT,WBC 8.4 10^3/uL (5.0-10.0)
[2024-05-05 18:16] LABS: HCG QUALITATIVE,SERUM NEGATIVE (NEGATIVE)
[2024-05-05 18:23] LABS: A/G RATIO 1.1; ALANINE AMINOTRANSFERASE,ALT 64 U/L (14-59); ALBUMIN 3.7 g/dL (3.4-5.0); ALKALINE PHOSPHATASE 49 U/L (46-116); ANION GAP 13.8 mEq/L (7-13); ASPARTATE AMNIOTRANSFERASE,AST 20 U/L (15-37); BILIRUBIN TOTAL 0.5 mg/dL (0.2-1.0); BLOOD UREA NITROGEN,BUN 18 mg/dL (7-18); BUN/CREATININE RATIO 23.1 (No establ ref range); CARBON DIOXIDE,CO2 25 mmol/L (21-32); CHLORIDE,CL 101 mmol/L (98-107); CREATININE 0.78 mg/dL (0.55-1.02); EST CRCL DRUG DOSING (CG) 94.24 mL/min; GLUCOSE RANDOM 125 mg/dL (70-99); MAGNESIUM 1.8 mg/dL (1.8-2.4); POTASSIUM,K 3.8 mmol/L (3.5-5.1); PROTEIN TOTAL,TP 7.1 g/dL (6.4-8.2); SODIUM,NA 136 mmol/L (136-145)
[2024-05-05 18:35] LABS: ESTIMATED GFR 102 mL/min (>=60)
[2024-05-05] MEDS: Ondansetron 4 MG/2 ML SDV IVPUSH ONE (18:40)
[2024-05-05] MEDS: Acetaminophen 500 MG Tab PO ONE (18:40)
[2024-05-05] MEDS: Sodium Chloride 0.9% 1,000 ML IV ONE (18:42)
[2024-05-05] MEDS: Meclizine 12.5 MG Tab PO ONE (20:09)
[2024-05-05 20:15] LABS: APPEARANCE,URINE CLEAR (CLEAR); BILIRUBIN,URINE NEGATIVE (NEGATIVE); COLOR,URINE YELLOW (YELLOW); GLUCOSE,URINE NEGATIVE (NEGATIVE); KETONES,URINE NEGATIVE (NEGATIVE); LEUKOCYTE ESTERASE,URINE NEGATIVE (NEGATIVE); NITRITE,URINE NEGATIVE (NEGATIVE); OCCULT BLOOD,URINE NEGATIVE (NEGATIVE); PH,URINE 5.5 (5.0-9.0); PROTEIN,URINE NEGATIVE (NEGATIVE); UROBILINOGEN,URINE 0.2 mg/dL (0.2-1.0)
== END 2024-05-05 21:05 | disposition home or self-care (01) ==
LOC: DL.ED 16:46
DX: G43.909 Migraine, unspecified, not intractable, without status migrainosus (principal); E86.9 Volume depletion, unspecified; R42 Dizziness and giddiness; J45.909 Unspecified asthma, uncomplicated; Z87.891 Personal history of nicotine dependence; Z79.899 Other long term (current) drug therapy; Z79.84 Long term (current) use of oral hypoglycemic drugs; Z91.040 Latex allergy status
CPT/HCPCS: 36415; 70450; 80053; 81003; 82947; 83735; 84484; 84703; 85025; 93005; 96361; 96374; 99284; A9270; J2405; J7030